=== PATIENT | female | born 1965 | race Caucasian/White ===

== ENCOUNTER 2017-09-03 16:23 | Emergency (ER) | payer OTHER ==
[~2017-09-03] VITALS: Ht 160 cm; Wt 68.5 kg
[2017-09-03 16:25] VITALS: Ht 160 cm; Wt 68.5 kg
[2017-09-03 17:43] LABS: CALCIUM 8.9 mg/dL (8.5-10.1); CARBON DIOXIDE 27.1 mmol/L (21-32); CHLORIDE SERUM 105 mmol/L (98-107); CREATININE SERUM 0.9 mg/dL (0.6-1.0); GFR1 > 60 mL/min; GLUCOSE SERUM 98 mg/dL (74-106); POTASSIUM SERUM 3.2 mmol/L (3.5-5.1); SODIUM SERUM 143 mmol/L (136-145)
[2017-09-03 17:44] LABS: ALKALINE PHOSPHATASE 71 U/L (46-116); ALT/SGPT 28 U/L (14-59); AST/SGOT 16 U/L (15-37); BILIRUBIN TOTAL 0.4 mg/dL (0.20-1.00); TOTAL PROTEIN, SERUM 7.1 g/dL (6.4-8.2)
[2017-09-03 17:47] LABS: CK-MB 1.1 ng/mL (0-3.6); FREE T4 0.96 ng/dL (0.76-1.46); FREE THYROXINE INDEX 2.1 ug/dL (1.4-4.5); T3 TOTAL 1.13 ng/mL; T4(THYROXINE) 6.5 ug/dL (4.7-13.3)
[2017-09-03 17:48] LABS: BASOPHIL % 0.8 % (0-2); PLATELET COUNT 249 x10^3mcL (130-400); RED CELL DISTRIBUTION WIDTH 14.4 % (11.5-14.5)
[2017-09-03 17:52] LABS: microscopic required? NO
[2017-09-03 18:06] LABS: UA SPECIFIC GRAVITY >=1.030 (1.005-1.035); urine erythrocyte NEGATIVE (NEGATIVE)
[2017-09-03 18:11] LABS: C REACTIVE PROTEIN < 0.2 mg/dL (<=0.9)
[2017-09-03 18:27] LABS: ERYTHROCYTE SED RATE 8 mm/hr (0-30)
[2017-09-03 19:32] VITALS: BP 120/73
== END 2017-09-03 19:33 | disposition home or self-care (01) ==
LOC: ED 16:23
PROVIDERS: Specialist
DX: J20.8 Acute bronchitis due to other specified organisms (principal); J45.909 Unspecified asthma, uncomplicated; Z88.5 Allergy status to narcotic agent
CPT/HCPCS: 36600; 83880; 84439; 87804; J1885; J7030